=== PATIENT | female | born 1965 | race Two or more races ===

== ENCOUNTER 2016-11-14 17:30 | Emergency (ER) | payer MEDICAID ==
[~2016-11-14] VITALS: Ht 165.1 cm; Wt 102.1 kg
[~2016-11-14 17:30] MED LIST: ELAVIL; LORCET; SOMA; SYNTHROID
[2016-11-14 17:59] VITALS: BP 153/78
[2016-11-14 19:10] LABS: Basophils # (auto) 0.1 uL; Basophils % (auto) 0.5 % (0.0-2.0); Eosinophils # (auto) 0.2 uL; Eosinophils % (auto) 1.9 % (0.0-7.0); Hematocrit 45.4 % (36.0-46.0); Lymphocytes # (auto) 2.8 uL; Lymphocytes % (auto) 24.5 % (10.0-50.0); Mean Corpuscular Hemoglobin 30.1 pg (28.0-32.0); Mean Corpuscular Hgb Conc. 33.1 g/dL (32.0-36.0); Mean Corpuscular Volume 90.9 fL (80.0-100.0); Mean Platelet Volume 8.9 fL (7.4-10.4); Monocytes # (auto) 0.5 uL; Monocytes % (auto) 4.3 % (0.0-12.0); Neutrophils # (auto) 7.8 uL; Neutrophils % (auto) 68.8 % (37.0-80.0); Platelet Count (auto) 302 10^3/uL (140-450); Red Cell Distribution Width 13.9 % (11.6-16.0); White Blood Cell 11.4 10^3/uL (4.4-10.8)
[2016-11-14 19:53] LABS: Albumin 3.8 g/dL (3.4-5.0); Alkaline Phosphatase 60 U/L (45-117); Anion Gap 11 (5-15); Aspartate Aminotransferase 51 U/L (15-37); BUN/Creatinine Ratio 23.3; Bilirubin, Total 0.3 mg/dL (0.2-1.0); Blood Urea Nitrogen 17 mg/dL (7-18); Calcium 9.3 mg/dL (8.5-10.1); Carbon Dioxide 25 mmol/L (21-32); Chloride 103 mmol/L (98-107); GFR African American 107 mL/min; GFR Non-African American 89 mL/min; Glucose 98 mg/dL (74-106); Magnesium 2.1 mg/dL (1.6-2.6); Potassium 3.8 mmol/L (3.5-5.1); Sodium 139 mmol/L (136-145); Total Protein 8.2 g/dL (6.4-8.2)
[2016-11-14 19:58] LABS: Urine Bilirubin Negative (Negative); Urine Blood TRACE /uL (Negative); Urine Color Yellow (Yellow); Urine Glucose Normal (Normal); Urine Ketone Negative (Negative); Urine Mucus FEW (None Seen); Urine Nitrite POSITIVE (Negative); Urine RBC 1 /hpf (0 - 4); Urine Squamous Epithelial Cell FEW /hpf (<5); Urine Urobilinogen Normal (Negative); Urine pH 5.5 (5.0-8.0)
[2016-11-15] MEDS ORDERED: HYDROcodone-ACET 10/325MG TAB PO ONE (02:30)
[2016-11-15] MEDS ORDERED: cefTRIAXone SOD 1,000 MG VL IM ONE (02:30)
== END 2016-11-15 03:12 | disposition home or self-care (01) ==
LOC: ER 17:30 → EDBD 17:30 → ER 11-15 03:12
DX: N39.0 Urinary tract infection, site not specified (principal); F32.9 Major depressive disorder, single episode, unspecified; E78.5 Hyperlipidemia, unspecified; E07.9 Disorder of thyroid, unspecified; E11.9 Type 2 diabetes mellitus without complications; F17.210 Nicotine dependence, cigarettes, uncomplicated; Z88.8 Allergy status to other drugs, medicaments and biological substances; Z88.6 Allergy status to analgesic agent; Z90.710 Acquired absence of both cervix and uterus
CPT/HCPCS: 36415; 80053; 81001; 83735; 84484; 85025; 93005; 96372; 99285; J0696

== ENCOUNTER → 2020-03-30 | Emergency (ER) | payer MEDICAID ==
[~2020-03-30] VITALS: Ht 165.1 cm; Wt 111.1 kg
[~2020-03-30] MED LIST changes: +MORPHINE SULFATE 4 MG/ML SYR/VIAL IM ONE; +MORPHINE SULFATE 4 MG/ML SYR/VIAL IV ONE; +ONDANSETRON HCL 4 MG/2 ML VIAL IM ONE; +ONDANSETRON HCL 4 MG/2 ML VIAL IV ONE; +SODIUM CHLORIDE 0.9% 500 ML IVB ONE
[2020-03-30 17:23] LABS: Urine Bacteria NONE SEEN /hpf (None Seen); Urine Blood Negative /uL (Negative); Urine Mucus FEW (None Seen); Urine Specific Gravity 1.024 (1.001-1.035); Urine WBC 1 /hpf (0 - 5)
[2020-03-30 17:24] LABS: Basophils # (auto) 0.1 10 ^3/uL (0-0.2); Basophils % (auto) 1.2 % (0.0-2.0); Eosinophils # (auto) 0.3 10 ^3/uL (0-0.8); Eosinophils % (auto) 3.2 % (0.0-7.0); Hematocrit 42.8 % (36.0-46.0); Hemoglobin 14.2 g/dL (12.2-16.2); Lymphocytes # (auto) 2.5 10 ^3/uL (0.4-5.4); Lymphocytes % (auto) 26.2 % (10.0-50.0); Mean Corpuscular Hemoglobin 30.5 pg (28.0-32.0); Mean Corpuscular Hgb Conc. 33.3 g/dL (32.0-36.0); Mean Corpuscular Volume 91.6 fL (80.0-100.0); Monocytes # (auto) 0.7 10 ^3/uL (0-1.3); Monocytes % (auto) 7.8 % (0.0-12.0); Neutrophils # (auto) 5.8 10 ^3/uL (1.6-8.6); Neutrophils % (auto) 61.6 % (37.0-80.0); Nucleated Red Blood Cells % 0.1 %; Platelet Count (auto) 309 10^3/uL (140-450); Red Blood Cells 4.67 10^6/uL (4.0-5.20); Red Cell Distribution Width 13.7 % (11.8-14.3); White Blood Cell 9.5 10^3/uL (4.4-10.8)
[2020-03-30 17:36] LABS: Albumin 3.8 g/dL (3.4-5.0); Calcium 9.5 mg/dL (8.5-10.1); Potassium 3.6 mmol/L (3.5-5.1)
[2020-03-30 17:38] LABS: BUN/Creatinine Ratio 22.4
[2020-03-30 17:42] LABS: Bilirubin, Total 0.2 mg/dL (0.2-1.0); Total Protein 7.9 g/dL (6.4-8.2)
[2020-03-30 20:29] VITALS: BP 111/81
== END | disposition home or self-care (01) ==
LOC: ER 16:23
DX: R10.11 Right upper quadrant pain (principal); R11.2 Nausea with vomiting, unspecified; R19.7 Diarrhea, unspecified
CPT/HCPCS: 36415; 76705; 80053; 81001; 83690; 85025; 93005; 96372; 99285; J2270; J2405

== ENCOUNTER 2021-12-05 12:08 | Emergency (ER) | payer MEDICAID ==
[~2021-12-05] VITALS: Ht 165.1 cm; Wt 109.3 kg
[~2021-12-05 12:08] MED LIST changes: -MORPHINE SULFATE 4 MG/ML SYR/VIAL IM ONE; -MORPHINE SULFATE 4 MG/ML SYR/VIAL IV ONE; -ONDANSETRON HCL 4 MG/2 ML VIAL IM ONE; -ONDANSETRON HCL 4 MG/2 ML VIAL IV ONE; -SODIUM CHLORIDE 0.9% 500 ML IVB ONE
[2021-12-05 12:10] VITALS: BP 129/82
[2021-12-05 12:51] LABS: Urine Bacteria NONE SEEN /hpf (None Seen); Urine Blood Negative /uL (Negative); Urine Specific Gravity 1.006 (1.001-1.035); Urine WBC <1 /hpf (0 - 5)
[2021-12-05 14:24] LABS: Basophils # (auto) 0.1 10 ^3/uL (0-0.2); Basophils % (auto) 0.5 % (0.0-2.0); Eosinophils # (auto) 0.1 10 ^3/uL (0-0.8); Eosinophils % (auto) 1.1 % (0.0-7.0); Hematocrit 39.4 % (36.0-46.0); Lymphocytes # (auto) 2.1 10 ^3/uL (0.4-5.4); Lymphocytes % (auto) 18.2 % (10.0-50.0); Mean Corpuscular Hemoglobin 29.6 pg (28.0-32.0); Mean Corpuscular Hgb Conc. 33.1 g/dL (32.0-36.0); Mean Corpuscular Volume 89.6 fL (80.0-100.0); Monocytes # (auto) 0.6 10 ^3/uL (0-1.3); Monocytes % (auto) 5.1 % (0.0-12.0); Neutrophils # (auto) 8.6 10 ^3/uL (1.6-8.6); Neutrophils % (auto) 75.1 % (37.0-80.0); Red Cell Distribution Width 14.1 % (11.8-14.3); White Blood Cell 11.5 10^3/uL (4.4-10.8)
[2021-12-05] MEDS ORDERED: KETOROLAC TROMETH 60MG/2ML VIAL IM ONE (14:30)
[2021-12-05 14:43] LABS: Calcium 9.4 mg/dL (8.5-10.1); Potassium 4.1 mmol/L (3.5-5.1)
[2021-12-05 14:46] LABS: BUN/Creatinine Ratio 14.5; Bilirubin, Total 0.3 mg/dL (0.2-1.0); Total Protein 8.4 g/dL (6.4-8.2)
== END 2021-12-05 15:32 | disposition home or self-care (01) ==
LOC: ER 12:08
DX: S39.012A Strain of muscle, fascia and tendon of lower back, initial encounter (principal); S16.1XXA Strain of muscle, fascia and tendon at neck level, initial encounter; E78.5 Hyperlipidemia, unspecified; Z90.710 Acquired absence of both cervix and uterus; Z88.8 Allergy status to other drugs, medicaments and biological substances; X58.XXXA Exposure to other specified factors, initial encounter; Y93.89 Activity, other specified; Y92.89 Other specified places as the place of occurrence of the external cause; Y99.8 Other external cause status
CPT/HCPCS: 36415; 72125; 74176; 80053; 81001; 85025; 96372; 99284; J1885

== ENCOUNTER 2022-07-30 09:33 | Inpatient (IN) | payer MEDICAID ==
[~2022-07-30] VITALS: Ht 165.1 cm; Wt 90.0 kg
[~2022-07-30 09:33] MED LIST changes: +ATO40T PO; +CHOL100055 PO; -ELAVIL; +LEVO-140 PO; -LORCET; +MIRT-66 OR; +QUET300T14 PO; -SOMA; -SYNTHROID
[2022-07-30] MEDS ORDERED: ceFAZolin 1GM/50ML 100 ML IV ONE (10:31)
[2022-07-30] MEDS ORDERED: LIDOCAINE 1% (LOCAL ANESTH.) PF 5ml SDV ONE (11:03)
[2022-07-30] MEDS ORDERED: GLYCOPYRROLATE 0.2 MG/ML 1ML VIAL ONE (11:03)
[2022-07-30] MEDS ORDERED: PROPOFOL 10 MG/ML 20 ML IV ONE (11:03)
[2022-07-30] MEDS ORDERED: DexAMETHasone SOD PHOS 10MG/1ML VIAL INJ ONE (11:03)
[2022-07-30] MEDS ORDERED: KETOROLAC TROMETH 30 MG/ML 1ML VIAL ONE (11:03)
[2022-07-30] MEDS ORDERED: ONDANSETRON HCL 4 MG/2 ML VIAL ONE (11:03)
[2022-07-30] MEDS ORDERED: BUPIVACAINE 0.75% INJ 10ML MPV SDV IJ ONE (11:11)
[2022-07-30] MEDS ORDERED: DexAMETHasone SOD PHOS 4 MG/1ML SDV INJ ONE (11:11)
[2022-07-30] MEDS ORDERED: SODIUM CHLORIDE LOCK 20 ML ONE (11:13)
[2022-07-30] MEDS ORDERED: ROPIVACAINE 0.5% (5MG/ML) 20ML AMPULE IJ ONE (12:03)
[2022-07-30] MEDS ORDERED: TRANEXAMIC ACID 20 ML ONE (12:03)
[2022-07-30] MEDS ORDERED: VANCOMYCIN HCL 1000 MG VL ONE ×2 (12:04→13:26)
[2022-07-30] MEDS ORDERED: LIDOCAINE 2%HCL (LOCAL ANESTH.) INJ 10ml MDV ONE (12:18)
[2022-07-30] MEDS ORDERED: MIDAZOLAM HCL 2MG/2ML 2ml VIAL (1mg/ml) ONE (12:19)
[2022-07-30] MEDS ORDERED: ROCURONIUM 10MG/ML 10ML VIAL IV ONE (12:20)
[2022-07-30] MEDS ORDERED: SUGAMMADEX 200mg/2ml Vial (100MG/ML) IV ONE (12:21)
[2022-07-30] MEDS ORDERED: SODIUM CHLORIDE LOCK 10 ML ONE (12:51)
[2022-07-30] MEDS ORDERED: fentaNYL CITRATE 100 MCG/2 ML VL ONE (13:08)
[2022-07-30] MEDS: D5W/LACTATED RINGERS 1,000 ML IV SCH (14:30)
[2022-07-30] MEDS ORDERED: oxyCODONE HCL 5MG TAB PO PRN (14:30)
[2022-07-30] MEDS ORDERED: ePHEDrine SULFATE 50 MG/ML AMP IV PRN (15:15)
[2022-07-30] MEDS ORDERED: LABETALOL HCL 5 MG/ML 4ML SYRINGE IV PRN (15:15)
[2022-07-30] MEDS ORDERED: FLUMAZENIL 0.1 MG/ML INJ 10ML MDV IV PRN (15:15)
[2022-07-30] MEDS ORDERED: NALOXONE HCL 0.4 MG/ML VIAL IV PRN (15:15)
[2022-07-30] MEDS ORDERED: ONDANSETRON HCL 4 MG/2 ML VIAL IV PRN (15:15)
[2022-07-30] MEDS ORDERED: hydrALAZINE HCL 20 MG/ML VL IV PRN (15:15)
[2022-07-30] MEDS ORDERED: fentaNYL CITRATE 100 MCG/2 ML VL IV PRN (15:15)
[2022-07-30] MEDS: HYDROmorphone HCL 2 MG/ML VL/or syr IV PRN ×3 (15:32→21:37)
[2022-07-30] MEDS: KETOROLAC TROMETH 30 MG/ML 1ML VIAL IV SCH ×2 (18:31→23:37)
[2022-07-30] MEDS: ACETAMINOPHEN 325 MG TAB PO SCH ×2 (18:31→23:37)
[2022-07-30 18:37] VITALS: BP 129/70
[2022-07-30] MEDS: oxyCODONE HCL 5MG TAB PO PRN (19:40)
[2022-07-30] MEDS: QUEtiapine FUMARATE 100 MG TAB PO SCH (21:28)
[2022-07-30] MEDS: MIRTAZAPINE 30 MG TAB PO SCH (21:29)
[2022-07-30] MEDS: PREGABALIN 25 MG CAP PO SCH (21:37)
[2022-07-30 22:00] VITALS: BP 123/79
[2022-07-30] MEDS: ceFAZolin 2 GM in D5W 5% 100 ML IV SCH (22:04)
[2022-07-31] MEDS: D5W/LACTATED RINGERS 1,000 ML IV SCH ×3 (00:30→20:30)
[2022-07-31] MEDS: oxyCODONE HCL 5MG TAB PO PRN ×2 (00:53→06:34)
[2022-07-31 05:00] VITALS: BP 132/69
[2022-07-31] MEDS: ceFAZolin 2 GM in D5W 5% 100 ML IV SCH (05:57)
[2022-07-31] MEDS: KETOROLAC TROMETH 30 MG/ML 1ML VIAL IV SCH ×4 (05:57→23:27)
[2022-07-31] MEDS: ACETAMINOPHEN 325 MG TAB PO SCH ×4 (05:57→23:26)
[2022-07-31] MEDS: LEVOTHYROXINE SODIUM 112 MCG TAB PO SCH (06:35)
[2022-07-31] MEDS: LEVOTHYROXINE SODIUM 25 MCG TAB PO SCH (06:35)
[2022-07-31 08:00] VITALS: BP 106/71
[2022-07-31] MEDS: HYDROmorphone HCL 2 MG/ML VL/or syr IV PRN (09:24)
[2022-07-31] MEDS: ASPirin 81 mg TAB PO SCH ×2 (09:25→21:30)
[2022-07-31] MEDS: PREGABALIN 25 MG CAP PO SCH ×2 (09:25→21:30)
[2022-07-31] MEDS ORDERED: LEVOTHYROXINE SODIUM 137 MCG PO SCH (10:00)
[2022-07-31] MEDS ORDERED: PANTOPRAZOLE 40 MG TAB PO SCH (10:00)
[2022-07-31 10:59] VITALS: BP 155/60
[2022-07-31 11:59] VITALS: BP 102/75
[2022-07-31 16:00] VITALS: BP 100/73
[2022-07-31] MEDS: MIRTAZAPINE 30 MG TAB PO SCH (21:25)
[2022-07-31] MEDS: QUEtiapine FUMARATE 100 MG TAB PO SCH (21:25)
[2022-07-31] MEDS ORDERED: ATORVASTATIN 20 MG TAB PO SCH (22:00)
[2022-08-01] MEDS: KETOROLAC TROMETH 30 MG/ML 1ML VIAL IV SCH (05:41)
[2022-08-01] MEDS: ACETAMINOPHEN 325 MG TAB PO SCH (05:41)
[2022-08-01] MEDS: D5W/LACTATED RINGERS 1,000 ML IV SCH (05:42)
[2022-08-01] MEDS: oxyCODONE HCL 5MG TAB PO PRN (05:44)
[2022-08-01] MEDS: LEVOTHYROXINE SODIUM 112 MCG TAB PO SCH (06:22)
[2022-08-01] MEDS: LEVOTHYROXINE SODIUM 25 MCG TAB PO SCH (06:22)
== END 2022-08-01 06:12 | disposition home health service (06) | DRG 326 ==
LOC: SUR 09:33 → OVERFLOW 14:29 → CENTRAL 18:14
PROVIDERS: ADMIT Orthopaedic Surgery; ATTEND Orthopaedic Surgery
PROC: 0SRD069 Replacement of Left Knee Joint with Oxidized Zirconium on Polyethylene Synthetic Substitute, Cemented, Open Approach (ICD-10-PCS; principal; 2022-07-30 12:32)
DX: M17.0 Bilateral primary osteoarthritis of knee (principal); Z20.822 Contact with and (suspected) exposure to COVID-19
CPT/HCPCS: 73562; 86850; 86900; 86901; G0378; J0690; J1100; J1885; J2001; J2250; J2405; J2704; J3490; J7060

== ENCOUNTER 2024-11-11 20:28 | Inpatient (IN) | payer MEDICAID ==
[~2024-11-11] VITALS: Ht 165.1 cm; Wt 86.9 kg
[~2024-11-11 20:28] MED LIST changes: -ATO40T PO; +ATOR-507 PO; -MIRT-66 OR; +MIRT-94 OR
--- NOTE | 2024-11-11 21:42 | DVH ---
CHEST RADIOGRAPH Indication: ams Technique: Single frontal view of the chest was obtained COMPARISON: None FINDINGS: Lines and Tubes: [employer] [facility] who landed for Rufino toid Lungs: Mild bibasilar atelactasis/consolidation. Pleura: No effusion. No pneumothorax. Cardiomediastinal contours: Unremarkable IMPRESSION: Mild bibasilar atelactasis/consolidation.
--- NOTE | 2024-11-11 21:43 | ED.PDOC ---
Altered Mental Status HPI Comments 59-year-old female came to ER with air brake operator for altered level of consciousness. Per air brake operator, patient resides at the [facility], was noted that patient has been acting confused and disoriented today, noted foul-smelling and cloudy urine, with urinary frequency and incontinence. No fever noted. No recent history of trauma noted. Chief Complaint: Confusion Time Seen by MD: 21:43 Primary Care Provider: NEFTALY Reviewed Notes: Nurses Notes Allergies: Coded Allergies: NO KNOWN ALLERGIES (Unverified , 07/30/22) Home Meds Reported Medications Cholecalciferol (D3) 1,000 Unit Tab, 1000 UNIT PO, TAB 07/26/22 Mirtazapine (REMERON) 30 Mg Tab, 30 MG OR QPM, TAB 07/26/22 Quetiapine Fumerate (Seroquel) 300 Mg Tab, 300 MG PO HS, TAB 07/26/22 Atorvastatin Calcium (Lipitor) 40 Mg Tab, 40 MG PO DAILY, TAB 07/26/22 Levothyroxine Sodium (Synthroid) 137 Mcg Tab, 137 MCG PO DAILY, TAB 07/26/22 Information Source: Patient, Friend, Legal Guardian Mode of Arrival: Wheelchair Severity: Unable to Care for Self Timing: Hours Duration: Since onset Prehospital treatment: None Quality: Decreased Alertness, Change in Behavior, Confusion Recent: Urinary Symptoms Past Medical History PAST MEDICAL HISTORY: Depression, High Lipids, Thyroid, UTI'S Surgical History: Hysterectomy, Tonsillectomy GRADE TAMPER History: No Pertinent GRADE TAMPER History Family History Family History: No family hx of Cancer Social History Smoker: Cigarettes Alcohol: Denies ETOH Use Drugs: Denies Drug Use Lives In: Assisted Care Unable to Obtain due to: Altered Mental Status, Other (Confused, disoriented) Physical Exam General Appearance: No Apparent Distress, Normal HEENT: Normal ENT Inspection, Pharynx Normal, TMs Normal Neck: Full Range of Motion, Non-Tender, Normal, Normal Inspection Respiratory: Chest Non-Tender, Lungs Clear, No Accessory Muscle Use, No Respiratory Distress, Normal Breath Sounds Cardiovascular: No Edema, No JVD, No Murmur, No Gallop, Normal Peripheral Pulses, Regular Rate/Rhythm Breast Exam: Deferred Gastrointestinal: No Organomegaly, Non Tender, No Pulsatile Mass, Normal Bowel Sounds, Soft Genitalia: Deferred Pelvic: Deferred Rectal: Deferred Extremities: No calf tenderness, Normal capillary refill, Normal inspection, Normal range of motion, Non-tender, No pedal edema Musculoskeletal : Apperance: Normal Neurologic: Alert, traffic agent II-XII nml as Tested, No Motor Deficits, Normal Affect, Normal Mood, No Sensory Deficits Cerebellar Function: Normal Reflexes: Normal Skin: Dry, Normal Color, Warm Lymphatic: No Adenopathy Was a procedure done? Was a procedure done?: No Differential Diagnosis (ALOC) Differential Diagnosis: Encephalopathy, Sepsis, Other (Urinary tract infection) X-Ray, Labs, Meds, VS Vital Signs Date Time Temp Pulse Resp B/P (MAP) Pulse Ox O2 Delivery O2 Flow Rate FiO2 11/11/24 22:02 98.6 90 18 105/55 (72) 95 98.6 11/11/24 22:02 95 Room Air* 0 21 11/11/24 20:44 97.7 92 18 105/55 (72) 95 97.7 Lab Test 11/11/24 23:35 11/11/24 22:22 Range/Units Troponin I High Sensitivity Pending 3 L </=34 ng/L White Blood Count 8.1 4.4-10.8 10^3/uL Red Blood Count 4.53 4.0-5.20 10^6/uL Hemoglobin 13.5 12.2-16.2 g/dL Hematocrit 41.0 36.0-46.0 % Mean Corpuscular Volume 90.6 80.0-100.0 fL Mean Corpuscular Hemoglobin 29.9 28.0-32.0 pg Mean Corpuscular Hemoglobin Concent 33.0 32.0-36.0 g/dL Red Cell Distribution Width 13.7 11.8-14.3 % Platelet Count 215 140-450 10^3/uL Mean Platelet Volume 9.1 6.9-10.8 fL Neutrophils (%) (Auto) 61.5 37.0-80.0 % Lymphocytes (%) (Auto) 28.9 10.0-50.0 % Monocytes (%) (Auto) 6.9 0.0-12.0 % Eosinophils (%) (Auto) 2.1 0.0-7.0 % Basophils (%) (Auto) 0.6 0.0-2.0 % Neutrophils # (Auto) 5.0 1.6-8.6 10 ^3/uL Lymphocytes # (Auto) 2.4 0.4-5.4 10 ^3/uL Monocytes # (Auto) 0.6 0-1.3 10 ^3/uL Eosinophils # (Auto) 0.2 0-0.8 10 ^3/uL Basophils # (Auto) 0 0-0.2 10 ^3/uL Nucleated Red Blood Cells 0.1 % Sodium Level 142 136-145 mmol/L Potassium Level 3.7 3.5-5.1 mmol/L Chloride Level 109 H 98-107 mmol/L Carbon Dioxide Level 26 20-31 mmol/L Anion Gap 7 5-15 Blood Urea Nitrogen 20 9-23 mg/dL Creatinine 0.87 0.550-1.02 mg/dL Glomerular Filtration Rate Calc 76 >90 mL/min BUN/Creatinine Ratio 23.0 H 10.0-20.0 Serum Glucose 112 H 74-106 mg/dL Lactic Acid Level 1.5 0.4-2.0 mmol/L Calcium Level 9.5 8.7-10.4 mg/dL Total Bilirubin 0.2 0.2-1.0 mg/dL Aspartate Amino Transferase (AST) 9 L 13-40 U/L Alanine Aminotransferase (ALT) 15 7-40 U/L Alkaline Phosphatase 63 46-116 U/L Total Protein 7.4 5.7-8.2 g/dL Albumin 4.7 3.2-4.8 g/dL EXAM: CT HEAD WITHOUT CONTRAST INDICATION: ams TECHNIQUE: CT of the head without intravenous contrast. Radiation Dose Information: CT Dose: CTDI volume is 56.58 mGy. Dose-length product is 2228.43 mGy*cm The dose indicators for CT are the volume Computed Tomography (CT) Dose Index (CTDIvol) and the Dose Length Product (DLP), and are measured in units of mGy and mGy-cm, respectively. These indicators are not patient dose, but values generated from the CT scanner acquisition factors. The report includes radiation exposure data for exposures received during this examination. COMPARISON: None FINDINGS: There is no evidence of acute intracranial hemorrhage, extra-axial collection, mass effect, midline shift, herniation or hydrocephalus. Area of decreased attenuation in the right anterior temporal lobe may represent old infarct. There is also an area of decreased attenuation in the right frontal lobe. There is no acute hemorrhage no mass effect. May also represent an area of old infarct. The ventricles, sulci and cisterns are age appropriate. The rizo-white differentiation is intact. Patchy periventricular and subcortical white matter hypoattenuation is nonspecif ic but may be related to small vessel ischemic disease. The visualized paranasal sinuses and mastoid air cells are clear. The surrounding soft tissues and osseous structures are unremarkable. IMPRESSION: 1. 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 There are no prior studies for comparison. 2. No acute intracranial hemorrhage. 3. No mass effect or midline shift. CHEST RADIOGRAPH Indication: ams Technique: Single frontal view of the chest was obtained COMPARISON: None FINDINGS: Lines and Tubes: [employer] [facility] who landed for [place] todc Lungs: Mild bibasilar atelactasis/consolidation. Pleura: No effusion. No pneumothorax. Cardiomediastinal contours: Unremarkable IMPRESSION: Mild bibasilar atelactasis/consolidation. Time of 1ST Reevaluation: 21:39 Reevaluation 1ST: Unchanged Patient Education/Counseling: Diagnosis, Treatment Family Education/Counseling: Diagnosis, Treatment Departure 1 Departure Time of Disposition: 00:07 (Patient with worsening altered mental status. Patient's workup so far is benign. We will admit patient for further workup and expert consultation) Impression: Primary Impression: Metabolic encephalopathy Additional Impression: Generalized weakness Disposition: ADMITTED INPATIENT Admit to: Med Surg Condition: Serious Critical Care Note Critical Care Time?: No Stability Stability form required: No Heart Score Heart Score: Heart Score Response (Comments) Value History N/A 0 EKG N/A 0 Age N/A 0 Risk Factors N/A 0 Troponin N/A 0 Total 0 I personally scribed for MORELIA MCKEON MD ([email or web address]) on 11/11/24 at 21:43. Electronically submitted by Moris Booker ([email or web address]). I personally scribed for MORELIA MCKEON MD ([email or web address]) on 11/11/24 at 22:33. Electronically submitted by Moris Booker ([email or web address]). MORELIA MCKEON MD November 11, 2024 21:43
--- NOTE | 2024-11-11 21:53 | DVH ---
EXAM: CT HEAD WITHOUT CONTRAST INDICATION: ams TECHNIQUE: CT of the head without intravenous contrast. Radiation Dose Information: CT Dose: CTDI volume is 56.58 mGy. Dose-length product is 2228.43 mGy*cm The dose indicators for CT are the volume Computed Tomography (CT) Dose Index (CTDIvol) and the Dose Length Product (DLP), and are measured in units of mGy and mGy-cm, respectively. These indicators are not patient dose, but values generated from the CT scanner acquisition factors. The report includes radiation exposure data for exposures received during this examination. COMPARISON: None FINDINGS: There is no evidence of acute intracranial hemorrhage, extra-axial collection, mass effect, midline s hift, herniation or hydrocephalus. Area of decreased attenuation in the right anterior temporal lobe may represent old infarct. There is also an area of decreased attenuation in the right frontal lobe. There is no acute hemorrhage no ma ss effect. May also represent an area of old infarct. The ventricles, sulci and cisterns are age appropriate. The rizo-white differentiation is intact. Patchy periventricular and subcortical white matter hypoattenuation is nonspecific but may be related to small vessel ischemic disease. The visualized paranasal sinuses and mastoid air cells are clear. The surrounding soft tissues and osseous structures are unremarkable. IMPRESSION: 1. 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 There are no prior studies for comparison. 2. No acute intracranial hemorrhage. 3. No mass effect or midline shift.
[2024-11-11 22:02] VITALS: O2SAT 95
[2024-11-11 23:06] LABS: Basophils # (auto) 0 10 ^3/uL (0-0.2); Basophils % (auto) 0.6 % (0.0-2.0); Eosinophils # (auto) 0.2 10 ^3/uL (0-0.8); Eosinophils % (auto) 2.1 % (0.0-7.0); Hemoglobin 13.5 g/dL (12.2-16.2); Lymphocytes # (auto) 2.4 10 ^3/uL (0.4-5.4); Lymphocytes % (auto) 28.9 % (10.0-50.0); Mean Corpuscular Hemoglobin 29.9 pg (28.0-32.0); Mean Corpuscular Volume 90.6 fL (80.0-100.0); Monocytes # (auto) 0.6 10 ^3/uL (0-1.3); Monocytes % (auto) 6.9 % (0.0-12.0); Neutrophils % (auto) 61.5 % (37.0-80.0); Nucleated Red Blood Cells % 0.1 %; Platelet Count (auto) 215 10^3/uL (140-450); Red Blood Cells 4.53 10^6/uL (4.0-5.20); Red Cell Distribution Width 13.7 % (11.8-14.3); White Blood Cell 8.1 10^3/uL (4.4-10.8)
[2024-11-11 23:44] LABS: Alanine Aminotransferase 15 U/L (7-40); Albumin 4.7 g/dL (3.2-4.8); Alkaline Phosphatase 63 U/L (46-116); Anion Gap 7 (5-15); Blood Urea Nitrogen 20 mg/dL (9-23); Calcium 9.5 mg/dL (8.7-10.4); Carbon Dioxide 26 mmol/L (20-31); Potassium 3.7 mmol/L (3.5-5.1); Sodium 142 mmol/L (136-145); Total Protein 7.4 g/dL (5.7-8.2)
[2024-11-11 23:49] LABS: Aspartate Aminotransferase 9 U/L (13-40); Bilirubin, Total 0.2 mg/dL (0.2-1.0); Chloride 109 mmol/L (98-107); Glucose 112 mg/dL (74-106)
[2024-11-12] MEDS ORDERED: MORPHINE SULFATE INJ 2 MG/ml SYRG IV PRN (01:45)
[2024-11-12] MEDS ORDERED: NITROGLYCERIN 0.4 MG SL TAB SL PRN (01:45)
[2024-11-12] MEDS ORDERED: HYDROcodone-ACET 5/325MG TAB PO PRN (01:45)
[2024-11-12] MEDS ORDERED: DOCUSATE SOD 100 MG CAP PO PRN (01:45)
[2024-11-12] MEDS ORDERED: ONDANSETRON HCL 4 MG/2 ML VIAL IV PRN (01:45)
--- NOTE | 2024-11-12 01:50 | DVHHP2 ---
History of Present Illness Reason for Visit: Metabolic encephalopathy History of Present Illness Patient is a 59-year-old female with past medical history of depression, thyroid disease, UTIs, and hyperlipidemia who presented to [facility] ED for evaluation of confusion state. As reported by caregiver, patient cognitive ability has been deteriorating, acting confused, disoriented, noted foul- smelling urine, urinary frequency, incontinence, getting worse that prompted this visit. Patient was seen and evaluated in the ED, laboratory data shows WBC 8.1, platelets 215, BUN 142, potassium 3.7, BUN 20, creatinine 0.87, glucose 112, troponin 3, urinalysis positive for urinary tract infection. Patient was started on IV antibiotic regimen Rocephin, please see medication orders section in the computer. On my assessment, patient remains conscious, no diaphoresis, no shortness a breath, no nausea, no vomiting, no fever, no chills. Patient was admitted for further evaluation and medical management. Past Medical History Depression, High Lipids, Thyroid, UTI'S Past Surgical History Hysterectomy, Tonsillectomy Family History Reviewed, noncontributory to the management of this case. Past Social History Patient lives at assisted living facility, smokes cigarettes, denies alcohol or illicit drugs abuse. Review of Systems Constitutional: Yes: Weakness; No: Fever, Chills, Sweats, Malaise, Other Eyes: No: Pain, Vision change, Conjunctivae inflammation, Eyelid inflammation, Other, Redness ENT: No: Ear pain, Ear discharge, Nose pain, Nose discharge, Nose congestion, Mouth pain, Mouth swelling, Throat pain, Throat swelling, Other Respiratory: No: Cough, Dry, Shortness of breath, SOB with excertion, Wheezing, Hemoptysis, Pleuritic Pain, Sputum, Wheezing, Other Cardiovascular: No: Chest Pain, Palpitations, Orthopnea, Paroxysmal Noc. Dyspnea, Edema, Lt Headedness, Other Gastrointestinal: No: Nausea, Vomiting, Abdominal Pain, Diarrhea, Constipation, Melena, Hematochezia, Other Genitourinary: No Dysuria, No Frequency, No Incontinence, No Hematuria, No Retention, No Other Musculoskeletal: No: other, neck pain, shoulder pain, arm pain, back pain, hand pain, leg pain, foot pain Skin: No: Rash, Lesions, Jaundice, Bruising, Other Neurological: Confusion; No: Weakness, Numbness, Incoordination, Change in speech, Seizures, Other Allergies: Coded Allergies: NO KNOWN ALLERGIES (Unverified , 07/30/22) Exam Vital Signs Vital Signs Date Time Temp Pulse Resp B/P (MAP) Pulse Ox O2 Delivery O2 Flow Rate FiO2 11/11/24 22:02 98.6 90 18 105/55 (72) 95 98.6 11/11/24 22:02 Room Air* 0 21 General Appearance: Alert, Oriented X3, Cooperative, No acute distress HEENT: Atraumatic, PERRLA, EOMI, Mucous membr. moist/pink Respiratory: Clear to auscultation, Normal air movement Cardiovascular: Regular rate, Normal S1, Normal S2, No murmurs Abdominal: Normal bowel sounds, Soft, No tenderness, No hepatospenomegaly, No masses Extremities: No clubbing, No cyanosis, No edema, Normal pulses, No tenderness/swelling Skin: No rashes, No breakdown, No significant lesion Neuro: Normal tone, Sensation intact, Cranial nerves 3-12 NL, Reflexes 2+, Other (Generalized weakness) Psych/Mental Status: Mood NL, Other (Altered mental status) Labs/Xrays Labs Test 11/11/24 23:59 11/11/24 23:35 11/11/24 22:22 Range/Units Troponin I High Sensitivity 3 L </=34 ng/L White Blood Count 8.1 4.4-10.8 10^3/uL Red Blood Count 4.53 4.0-5.20 10^6/uL Hemoglobin 13.5 12.2-16.2 g/dL Hematocrit 41.0 36.0-46.0 % Mean Corpuscular Volume 90.6 80.0-100.0 fL Mean Corpuscular Hemoglobin 29.9 28.0-32.0 pg Mean Corpuscular Hemoglobin Concent 33.0 32.0-36.0 g/dL Red Cell Distribution Width 13.7 11.8-14.3 % Platelet Count 215 140-450 10^3/uL Mean Platelet Volume 9.1 6.9-10.8 fL Neutrophils (%) (Auto) 61.5 37.0-80.0 % Lymphocytes (%) (Auto) 28.9 10.0-50.0 % Monocytes (%) (Auto) 6.9 0.0-12.0 % Eosinophils (%) (Auto) 2.1 0.0-7.0 % Basophils (%) (Auto) 0.6 0.0-2.0 % Neutrophils # (Auto) 5.0 1.6-8.6 10 ^3/uL Lymphocytes # (Auto) 2.4 0.4-5.4 10 ^3/uL Monocytes # (Auto) 0.6 0-1.3 10 ^3/uL Eosinophils # (Auto) 0.2 0-0.8 10 ^3/uL Basophils # (Auto) 0 0-0.2 10 ^3/uL Nucleated Red Blood Cells 0.1 % Sodium Level 142 136-145 mmol/L Potassium Level 3.7 3.5-5.1 mmol/L Chloride Level 109 H 98-107 mmol/L Carbon Dioxide Level 26 20-31 mmol/L Anion Gap 7 5-15 Blood Urea Nitrogen 20 9-23 mg/dL Creatinine 0.87 0.550-1.02 mg/dL Glomerular Filtration Rate Calc 76 >90 mL/min BUN/Creatinine Ratio 23.0 H 10.0-20.0 Serum Glucose 112 H 74-106 mg/dL Lactic Acid Level 1.5 0.4-2.0 mmol/L Calcium Level 9.5 8.7-10.4 mg/dL Total Bilirubin 0.2 0.2-1.0 mg/dL Aspartate Amino Transferase (AST) 9 L 13-40 U/L Alanine Aminotransferase (ALT) 15 7-40 U/L Alkaline Phosphatase 63 46-116 U/L Total Protein 7.4 5.7-8.2 g/dL Albumin 4.7 3.2-4.8 g/dL PATIENT: SHARON PAINTER ACCT: [id number] UNIT: [id number] : 1965 LOC: ER ROOM / BED: / AGE / SEX: 59 / F ADM STATUS: REG ER SERVICE 12 ORDERING PHYSICIAN: MORELIA MCKEON MD PROCEDURE(s): CXRP - CHEST PORTABLE REASON: ams ORDER NUMBER(s): [id number], ACCESSION NUMBER(s): [id number] CHEST RADIOGRAPH Indication: ams Technique: Single frontal view of the chest was obtained COMPARISON: None FINDINGS: Lines and Tubes: [employer] [facility] who landed for [employer] toid Lungs: Mild bibasilar atelactasis/consolidation. Pleura: No effusion. No pneumothorax. Cardiomediastinal contours: Unremarkable IMPRESSION: Mild bibasilar atelactasis/consolidation. ORDERING PHYSICIAN: MORELIA MCKEON MD PROCEDURE(s): HWOCT - HEAD WITHOUT CONTRAST REASON: [facility] ORDER NUMBER(s): [id number], ACCESSION NUMBER(s): [id number] EXAM: CT HEAD WITHOUT CONTRAST INDICATION: ams TECHNIQUE: CT of the head without intravenous contrast. Radiation Dose Information: CT Dose: CTDI volume is 56.58 mGy. Dose-length product is 2228.43 mGy*cm The dose indicators for CT are the volume Computed Tomography (CT) Dose Index (CTDIvol) and the Dose Length Product (DLP), and are measured in units of mGy and mGy-cm, respectively. These indicators are not patient dose, but values generated from the CT scanner acquisition factors. The report includes radiation exposure data for exposures received during this examination. COMPARISON: None FINDINGS: There is no evidence of acute intracranial hemorrhage, extra-axial collection, mass effect, midline shift, herniation or hydrocephalus. Area of decreased attenuation in the right anterior temporal lobe may represent old infarct. There is also an area of decreased attenuation in the right frontal lobe. There is no acute hemorrhage no mass effect. May also represent an area of old infarct. The ventricles, sulci and cisterns are age appropriate. The rizo-white differentiation is intact. Patchy periventricular and subcortical white matter hypoattenuation is nonspecific but may be related to small vessel ischemic disease. The visualized paranasal sinuses and mastoid air cells are clear. The surrounding soft tissues and osseous structures are unremarkable. IMPRESSION: 1. 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 There are no prior studies for comparison. 2. No acute intracranial hemorrhage. 3. No mass effect or midline shift. Assessment/Plan Assessment/Plan Metabolic encephalopathy Urinary tract infection Confusion state Generalized weakness Plan 1. Admit to med surge unit 2. Breathing treatment 3. Pain control management 4. IV antibiotic management 5. Management of fluids and electrolytes 6. Consultation for hospitalist 7. Diagnostic test head CT 8. DVT prophylaxis-on SCDs 9. Repeat labs CBC, CMP in a.m. 10. Home medication reviewed and reconciled 11. Continue with current medical management 12. Treatment plan discussed with patient and RN. Patient verbalized understanding. Plan discussed with: Patient, Other (RN) Problem List: (1) Metabolic encephalopathy (2) Urinary tract infection (3) Confusion state (4) Generalized weakness Date of Service: November 12, 2024 Billing Provider: SAMUEL SAMUELS DNP Common Visit Codes: [id number] INP/OBS CARE (HIGH) SAMUEL SAMUELS DNP November 12, 2024 01:50
[2024-11-12 02:40] LABS: Urine Bacteria MANY /hpf (None Seen); Urine Blood Negative /uL (Negative); Urine Clarity Ex.Turbid (Clear); Urine Color Light-Brown (Yellow); Urine Protein, UAD TRACE (Negative); Urine Specific Gravity 1.027 (1.001-1.035); Urine Squamous Epithelial Cell FEW /hpf (<5); Urine Urobilinogen 4 mg/dL (Negative); Urine WBC 8 /HPF (0-5)
[2024-11-12] MEDS: LEVOTHYROXINE SODIUM 112 MCG TAB PO SCH (06:30)
[2024-11-12] MEDS: SODIUM CHLOR 0.9% PF (SALINE LOCK) 10ML VIAL/SYR IV SCH (06:30)
[2024-11-12 09:18] VITALS: PULSE 77; RESP 18; O2SAT 96
[2024-11-12] MEDS: HALOPERIDOL LACTATE 5 MG/ML INJ VIAL IM ONE (10:52)
[2024-11-12] MEDS ORDERED: ALBUTEROL SULF 2.5 MG/0.5ML(0.5%) NEB SOLN NEB PRN (11:30)
--- NOTE | 2024-11-12 11:38 | DVHPNRES ---
Progress Note Date Seen: November 12, 2024 Resident Creating Document: ROSA DELCID RESIDENT Medical Necessity Reason Pt with a Central, PICC or Fol: No Subjective Review of Systems This is a 59-year-old female with past medical history of depression, hypothyroidism, hyperlipidemia, schizophrenia presented to the ED the EMS for an evaluation of altered mental status; caregiver claimed the patient's cognitive ability has been deteriorating, acting confused, disoriented, noted foul-smelling urine, urinary frequency, incontinence getting worse that prompted this visit. Patient was seen and examined on the bedside. she is alert oriented x1 and agitated. Review of system could not be assessed as patient is not fully alert and oriented. Objective vital signs Vital Sign Date Time Temp Pulse Resp B/P (MAP) Pulse Ox O2 Delivery O2 Flow Rate FiO2 11/12/24 09:18 77 18 96 Room Air* 0 21 11/12/24 09:17 98.2 123/73 (90) 98.2 medications Current Medications Medications Dose Ordered Sig/Candido Route Start Time Stop Time Status Last Admin Dose Admin Atorvastatin Calcium 40 mg HS PO 11/12/24 22:00 Cancel Mirtazapine 30 mg HS PO 11/12/24 22:00 Cancel Sodium Chloride 10 ml Q8HR IV 11/12/24 06:00 11/12/24 06:30 10 ML Acetaminophen/ Hydrocodone Bitart 1 tab Q4HP PRN PO 11/12/24 01:45 Ondansetron HCl 4 mg Q4HP PRN IV 11/12/24 01:45 Docusate Sodium 100 mg BIDPRN PRN PO 11/12/24 01:45 Acetaminophen 650 mg Q6HP PRN PO 11/12/24 01:45 Nitroglycerin 0.4 mg Q5MINP PRN SL 11/12/24 01:45 Morphine Sulfate 2 mg Q30M PRN IV 11/12/24 01:45 Ceftriaxone Sodium 50 ml @ 100 mls/hr DAILY@09 IV 11/13/24 09:00 Cholecalciferol 1,000 unit DAILY PO 11/13/24 10:00 Mirtazapine 30 mg QPM PO 11/12/24 18:00 Patient Own Medication 137 mcg DAILY PO 11/13/24 10:00 UNV Patient Own Medication 300 mg HS PO 11/12/24 22:00 UNV Atorvastatin Calcium 40 mg HS PO 11/12/24 22:00 Levothyroxine Sodium 112 mcg QAM PO 11/13/24 07:00 Levothyroxine Sodium 25 mcg QAM PO 11/13/24 07:00 Quetiapine Fumarate 300 mg HS PO 11/12/24 22:00 Azithromycin 250 ml @ 125 mls/hr DAILY IV 11/13/24 10:00 Albuterol 2.5 mg Q6HPRN PRN NEB 11/12/24 11:30 Ipratropium [place] 0.5 mg Q6HR NEB 11/12/24 12:00 Examination Physical examination: General Appearance: Alert, Oriented X1, agitated and mild distress HEENT: Atraumatic, PERRLA, EOMI, Mucous membrane moist/pink Respiratory: Clear to auscultation, Normal air movement Cardiovascular: Regular rate, Normal S1, Normal S2, No murmurs, no chest wall tenderness Abdominal: Normal bowel sounds, Soft, No tenderness, No hepatosplenomegaly, No masses Extremities: Bilateral nonpitting edema, No clubbing, No cyanosis, Normal pulses, No tenderness/swelling Skin: No rashes, No breakdown, No significant lesion Neuro: Normal speech, Strength at 5/5 X4 ext, Normal tone, Sensation intact, grossly intact cranial nerves Psych/Mental Status: Could not be assessed. 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 - CXR showed mild bibasilar atelectasis/ consolidation - med neb with albuterol and ipratropium q.6 hours - IV ceftriaxone 1 g daily and IV azithromycin 500 mg daily - Pending UDS, TSH, B12, and ammonia. - Haloperidol 2.5 mg IM once # Acute complicated cystitis - U/A was consistent with UTI - Ordered urine bacterial culture - IV ceftriaxone 1 g daily # Chronic hypothyroidism - Levothyroxine 137 mcg daily at q.a.m. # History of the depression - mirtazapine 30 mg p.o. at q.p.m. # Questionable history of schizophrenia - quetiapine 300 mg at HS # DVT prophylaxis - Lovenox 40 mg sc daily Goal of care could not be discussed as patient is A&O x1 Plan discussed with Dr. Shaffer Plan discussed with: Patient, Other (Nurse) My Orders My Orders Orders - ROSA DELCID RESIDENT Procedure Category Date Status Time Ammonia LAB 11/12/24 Logged 10:11 Cholecalciferol PHA 11/13/24 In Process Tablet (Vitamin D3 10:00 Mirtazapine Tablet PHA 11/12/24 In Process (Remeron Tablet) 18:00 Abg W/ Co-Ox RT 11/12/24 Logged 11:00 Atorvastatin (Lipitor) PHA 11/12/24 In Process 22:00 Levothyroxine Tablet PHA 11/13/24 In Process (Synthroid Tablet) 07:00 Levothyroxine Tablet PHA 11/13/24 In Process (Synthroid Tablet) 07:00 Quetiapine Fumarate PHA 11/12/24 In Process Tablet (Seroquel Tab 22:00 Drug Screen LAB 11/12/24 Logged 11:07 Vitamin B12 LAB 11/12/24 Logged 11:07 Vitamin D, 25-Hydroxy LAB 11/12/24 Logged 11:07 Azithromycin 500mg/ PHA 11/13/24 In Process 250ml (Zithromax 50 10:00 Azithromycin 500mg/ PHA 11/12/24 In Process 250ml (Zithromax 50 11:15 Covid19 Antigen Paula LAB 11/12/24 Logged Rapid Influenza A&B LAB 11/12/24 Logged 11:13 Mrsa Screen LUCY 11/12/24 Uncollected 11:13 Albuterol Medneb PHA 11/12/24 In Process (Ventolin Medneb) 11:30 Ipratropium Medneb PHA 11/12/24 In Process (Atrovent Medneb) 12:00 Addendum Addendum Addendum I was physically present for the turner portions of the service provided to patient by THE RESIDENT. I have reviewed the documentation, discussed the case with resident and agree with the resident's documentation except as noted. Also the patient's clinical case was discussed with the patient's nurse. This medical document was created using an electronic medical record system with computerized dictation system. Although this document has been carefully reviewed, there might still be some phonetic and typographical errors. These areas are purely typographical due to imperfections of the software programs, and do not reflect any compromise in the patient's medical care. Late signature. Date of Service: November 12, 2024 Billing Provider: YANCY SHAFFER MD Common Visit Codes: [id number] INP/OBS CARE(HIGH) ROSA DELCID RESIDENT November 12, 2024 11:38 YANCY SHAFFER MD November 13, 2024 10:35
[2024-11-12] MEDS: cefTRIAXone 1GM/50ML D5W 50 ML IV ONE (11:41)
[2024-11-12] MEDS ORDERED: IPRATROPIUM BROM 0.5 MG/2.5ML INH SOL NEB SCH (12:00)
[2024-11-12] MEDS: AZITHROMYCIN 500MG/ 250ML 250 ML IV ONE (12:05)
[2024-11-12 12:37] VITALS: BP 123/73; PULSE 77; RESP 18; O2SAT 96
[2024-11-12] MEDS ORDERED: IPRATROPIUM BROM 0.5 MG/2.5ML INH SOL NEB PRN (13:00)
[2024-11-12 14:38] LABS: Basophils # (auto) 0.1 10 ^3/uL (0-0.2); Basophils % (auto) 0.9 % (0.0-2.0); Eosinophils # (auto) 0.2 10 ^3/uL (0-0.8); Eosinophils % (auto) 2.5 % (0.0-7.0); Hematocrit 40.4 % (36.0-46.0); Hemoglobin 13.6 g/dL (12.2-16.2); Lymphocytes # (auto) 2.2 10 ^3/uL (0.4-5.4); Lymphocytes % (auto) 34.1 % (10.0-50.0); Mean Corpuscular Hemoglobin 30.1 pg (28.0-32.0); Mean Corpuscular Hgb Conc. 33.6 g/dL (32.0-36.0); Mean Corpuscular Volume 89.6 fL (80.0-100.0); Monocytes # (auto) 0.6 10 ^3/uL (0-1.3); Neutrophils # (auto) 3.5 10 ^3/uL (1.6-8.6); Neutrophils % (auto) 53.5 % (37.0-80.0); Nucleated Red Blood Cells % 0.1 %; Platelet Count (auto) 175 10^3/uL (140-450); Red Blood Cells 4.51 10^6/uL (4.0-5.20); Red Cell Distribution Width 13.6 % (11.8-14.3); White Blood Cell 6.6 10^3/uL (4.4-10.8)
[2024-11-12 14:45] LABS: Potassium 3.9 mmol/L (3.5-5.1); Sodium 143 mmol/L (136-145)
[2024-11-12 14:46] LABS: Anion Gap 8 (5-15); Calcium 10.2 mg/dL (8.7-10.4); Carbon Dioxide 27 mmol/L (20-31)
[2024-11-12 14:47] LABS: Chloride 108 mmol/L (98-107)
[2024-11-12 14:51] LABS: BUN/Creatinine Ratio 30.9 (10.0-20.0); Blood Urea Nitrogen 17 mg/dL (9-23); Glucose 89 mg/dL (74-106)
[2024-11-12 16:08] LABS: COVID19 ANTIGEN SOFIA FIA NEGATIVE (NEGATIVE)
[2024-11-12 16:09] LABS: Rapid Influenza A Negative (Negative); Rapid Influenza B Negative (Negative)
[2024-11-12 18:47] VITALS: O2SAT 96
[2024-11-12 19:00] VITALS: BP 107/58; PULSE 54; RESP 18; TEMP 98.6; TEMP 99.6; O2SAT 96
[2024-11-12] MEDS: MIRTAZAPINE 30 MG TAB PO SCH (19:31)
[2024-11-12 20:00] VITALS: PULSE 87
[2024-11-12 21:00] VITALS: BP 107/58; PULSE 54; RESP 18; TEMP 98.6; O2SAT 96
[2024-11-12] MEDS ORDERED: MIRTAZAPINE 30 MG TAB PO SCH (22:00)
[2024-11-12] MEDS ORDERED: QUETIAPINE FUMERATE 300 MG PO SCH (22:00)
[2024-11-12] MEDS ORDERED: ATORVASTATIN 20 MG TAB PO SCH (22:00)
[2024-11-12] MEDS: ATORVASTATIN 20 MG TAB PO SCH (22:41)
[2024-11-12] MEDS: QUEtiapine FUMARATE 100 MG TAB PO SCH (22:42)
[2024-11-13] VITALS (9 sets, daily range): BP systolic 96–103; BP diastolic 53–73; PULSE 59–81; RESP 16–19; TEMP 96.7–98; O2SAT 92–96
[2024-11-13] MEDS: LEVOTHYROXINE SODIUM 25 MCG TAB PO SCH (06:28)
[2024-11-13] MEDS: LEVOTHYROXINE SODIUM 112 MCG TAB PO SCH (06:28)
[2024-11-13] MEDS: cefTRIAXone 1GM/50ML D5W 50 ML IV SCH (09:39)
[2024-11-13] MEDS: CHOLECALCIFEROL (VITD3) 1,000UNIT=25mCg TAB PO SCH (09:39)
[2024-11-13] MEDS: ACETAMINOPHEN 325 MG TAB PO PRN (09:39)
[2024-11-13] MEDS ORDERED: PATIENTS OWN MEDICATION (Atorvastatin Calcium (Lipitor) 40 MG) PO SCH (10:00)
[2024-11-13] MEDS ORDERED: LEVOTHYROXINE SODIUM 137 MCG PO SCH (10:00)
[2024-11-13] MEDS: AZITHROMYCIN 500MG/ 250ML 250 ML IV SCH (10:54)
--- NOTE | 2024-11-13 13:19 | DVHPNRES ---
Progress Note Date Seen: November 13, 2024 Resident Creating Document: ROSA DELCID RESIDENT Medical Necessity Reason Pt with a Central, PICC or Fol: No Subjective Review of Systems Patient was seen and examined on the bedside. she is alert oriented x1 and still confused and agitated. Objective vital signs Vital Sign Date Time Temp Pulse Resp B/P (MAP) Pulse Ox O2 Delivery O2 Flow Rate FiO2 11/13/24 12:48 97.8 59 16 98/58 (71) 96 97.8 11/13/24 10:00 Room Air 0.0 11/13/24 10:00 21 Total Intake and Output 11/12/24 11/12/24 11/13/24 15:00 23:00 07:00 Intake Total 225 ml 880 ml Balance 225 ml 880 ml medications Current Medications Medications Dose Ordered Sig/Candido Route Start Time Stop Time Status Last Admin Dose Admin Atorvastatin Calcium 40 mg HS PO 11/12/24 22:00 Cancel Mirtazapine 30 mg HS PO 11/12/24 22:00 Cancel Sodium Chloride 10 ml Q8HR IV 11/12/24 06:00 11/13/24 06:06 10 ML Acetaminophen/ Hydrocodone Bitart 1 tab Q4HP PRN PO 11/12/24 01:45 Ondansetron HCl 4 mg Q4HP PRN IV 11/12/24 01:45 Docusate Sodium 100 mg BIDPRN PRN PO 11/12/24 01:45 Acetaminophen 650 mg Q6HP PRN PO 11/12/24 01:45 11/13/24 09:39 650 MG Nitroglycerin 0.4 mg Q5MINP PRN SL 11/12/24 01:45 Morphine Sulfate 2 mg Q30M PRN IV 11/12/24 01:45 Ceftriaxone Sodium 50 ml @ 100 mls/hr DAILY@09 IV 11/13/24 09:00 11/13/24 09:39 100 MLS/HR Cholecalciferol 1,000 unit DAILY PO 11/13/24 10:00 11/13/24 09:39 1,000 UNIT Mirtazapine 30 mg QPM PO 11/12/24 18:00 11/12/24 19:31 30 MG Patient Own Medication 137 mcg DAILY PO 11/13/24 10:00 UNV Patient Own Medication 300 mg HS PO 11/12/24 22:00 UNV Atorvastatin Calcium 40 mg HS PO 11/12/24 22:00 11/12/24 22:41 40 MG Levothyroxine Sodium 112 mcg QAM PO 11/13/24 07:00 11/13/24 06:28 112 MCG Levothyroxine Sodium 25 mcg QAM PO 11/13/24 07:00 11/13/24 06:28 25 MCG Quetiapine Fumarate 300 mg HS PO 11/12/24 22:00 11/12/24 22:42 300 MG Azithromycin 250 ml @ 125 mls/hr DAILY IV 11/13/24 10:00 11/13/24 10:54 125 MLS/HR Albuterol 2.5 mg Q6HPRN PRN NEB 11/12/24 11:30 Ipratropium [place] 0.5 mg Q6HR PRN NEB 11/12/24 13:00 Examination Physical examination: General Appearance: Alert, Oriented X1, agitated and mild distress HEENT: Atraumatic, PERRLA, EOMI, Mucous membrane moist/pink Respiratory: Clear to auscultation, Normal air movement Cardiovascular: Regular rate, Normal S1, Normal S2, No murmurs, no chest wall tenderness Abdominal: Normal bowel sounds, Soft, No tenderness, No hepatosplenomegaly, No masses Extremities: Bilateral nonpitting edema, No clubbing, No cyanosis, Normal pulses, No tenderness/swelling Skin: No rashes, No breakdown, No significant lesion Neuro: Normal speech, Strength at 5/5 X4 ext, Normal tone, Sensation intact, grossly intact cranial nerves Psych/Mental Status: Could not be assessed laboratory and microbiology Laboratory Tests 11/12/24 14:18 Test 11/12/24 14:18 Range/Units Serum Glucose 89 74-106 mg/dL Microbiology Date/Time Source Procedure Growth Status 11/11/24 23:59 Voided Urine Urine Culture - Preliminary Resulted 11/11/24 22:22 Blood Blood Culture - Preliminary NO GROWTH AFTER 24 HOURS OF INCUBATION. 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 - CXR showed mild bibasilar atelectasis/ consolidation - med neb with albuterol and ipratropium q.6 hours - IV ceftriaxone 1 g daily and IV azithromycin 500 mg daily - TSH >14 and B12 , ammonia are normal and pending UDS - Haloperidol 2.5 mg IM once # Acute complicated cystitis - U/A was consistent with UTI - Ordered urine bacterial culture - IV ceftriaxone 1 g daily # Chronic hypothyroidism with elevated TSH - Increased Levothyroxine to 150 mcg daily at q.a.m. # History of the depression - Mirtazapine 30 mg p.o. at q.p.m. # Questionable history of schizophrenia - Quetiapine 300 mg at HS # DVT prophylaxis - Lovenox 40 mg sc daily Goal of care could not be discussed as patient is A&O x1 Plan discussed with Dr. Shaffer Plan discussed with: Patient, Other (Nurse) My Orders My Orders Orders - ROSA DELCID Procedure Category Date Status Time Mrsa Screen LUCY 11/12/24 In Process 22:45 * Title Manager CONS 11/12/24 Transmitted Consult 23:48 Addendum Addendum Addendum I was physically present for the turner portions of the service provided to patient by THE RESIDENT. I have reviewed the documentation, discussed the case with resident and agree with the resident's documentation except as noted. Also the patient's clinical case was discussed with the patient's nurse. This medical document was created using an electronic medical record system with computerized dictation system. Although this document has been carefully reviewed, there might still be some phonetic and typographical errors. These areas are purely typographical due to imperfections of the software programs, and do not reflect any compromise in the patient's medical care. Late signature. Date of Service: November 13, 2024 Billing Provider: YANCY SHAFFER MD Common Visit Codes: [id number] INP/OBS CARE(HIGH) ROSA DELCID RESIDENT November 13, 2024 13:19 YANCY SHAFFER MD November 14, 2024 12:04
[2024-11-13] MEDS ORDERED: LORazepam 2MG/ML-1ML VIAL IV PRN (15:00)
[2024-11-13] MEDS: MUPIROCIN 2% OINT 15gm or 22gm FOR MRSA NARES EACHNOSTRI SCH (22:00)
[2024-11-14] VITALS (10 sets, daily range): BP systolic 115–127; BP diastolic 45–71; PULSE 70–85; RESP 18–20; TEMP 98–98.4; O2SAT 93–96
[2024-11-14] MEDS: LEVOTHYROXINE SODIUM 50 MCG TAB PO SCH (06:25)
--- NOTE | 2024-11-14 07:58 | DVHPN2 ---
Subjective Still confused Reviewed: Care Plan, H&P, Labs, Medications, Previous Orders, Radiology Changes from previous H/P or p: No Changes Objective Vitals Vital Signs Date Time Temp Pulse Resp B/P (MAP) Pulse Ox O2 Delivery O2 Flow Rate FiO2 11/14/24 05:00 98.1 70 18 123/65 (84) 96 98.1 11/13/24 20:00 Room Air* 0 21 Intake/Output Intake and Output 11/14/24 07:00 Intake Total 3495 ml Balance 3495 ml Intake Oral 3195 ml IV Total 300 ml # Voids 10 # Bowel Movements 1 General Appearance: Other (Confused) HEENT: Atraumatic Lungs: Clear to auscultation, Normal air movement Cardiovascular: Regular rate, Normal S1, Normal S2, No murmurs Abdomen: Normal bowel sounds, Soft, No tenderness, No hepatospenomegaly Neuro: Normal speech, Cranial nerves 3-12 NL, Other (Confused) Psych/Mental Status: Other (Confused) Medications Current Medications Medications Dose Ordered Sig/Candido Route Start Time Stop Time Status Last Admin Dose Admin Atorvastatin Calcium 40 mg HS PO 11/12/24 22:00 Cancel Mirtazapine 30 mg HS PO 11/12/24 22:00 Cancel Sodium Chloride 10 ml Q8HR IV 11/12/24 06:00 11/14/24 06:25 10 ML Acetaminophen/ Hydrocodone Bitart 1 tab Q4HP PRN PO 11/12/24 01:45 Ondansetron HCl 4 mg Q4HP PRN IV 11/12/24 01:45 Docusate Sodium 100 mg BIDPRN PRN PO 11/12/24 01:45 Acetaminophen 650 mg Q6HP PRN PO 11/12/24 01:45 11/13/24 18:26 650 MG Nitroglycerin 0.4 mg Q5MINP PRN SL 11/12/24 01:45 Morphine Sulfate 2 mg Q30M PRN IV 11/12/24 01:45 Ceftriaxone Sodium 50 ml @ 100 mls/hr DAILY@09 IV 11/13/24 09:00 11/13/24 09:39 100 MLS/HR Cholecalciferol 1,000 unit DAILY PO 11/13/24 10:00 11/13/24 09:39 1,000 UNIT Mirtazapine 30 mg QPM PO 11/12/24 18:00 11/13/24 18:26 30 MG Patient Own Medication 137 mcg DAILY PO 11/13/24 10:00 UNV Patient Own Medication 300 mg HS PO 11/12/24 22:00 UNV Atorvastatin Calcium 40 mg HS PO 11/12/24 22:00 11/13/24 23:07 40 MG Quetiapine Fumarate 300 mg HS PO 11/12/24 22:00 11/13/24 23:06 300 MG Azithromycin 250 ml @ 125 mls/hr DAILY IV 11/13/24 10:00 11/13/24 10:54 125 MLS/HR Albuterol 2.5 mg Q6HPRN PRN NEB 11/12/24 11:30 Ipratropium [place] 0.5 mg Q6HR PRN NEB 11/12/24 13:00 Levothyroxine Sodium 150 mcg QAM@0600 PO 11/14/24 06:00 11/14/24 06:25 150 MCG Mupirocin 1 applic BID EACHNOSTRI 11/13/24 22:00 11/18/24 21:59 Lorazepam 0.5 mg Q12HP PRN IV 11/13/24 15:00 Laboratory Results Laboratory Tests 11/12/24 14:18 Urinalysis Test 11/11/24 23:59 Urine Color Light-brown (Yellow) Urine Clarity Ex.turbid (Clear) Urine pH 6.0 (5.0-9.0) Urine Specific [place] 1.027 (1.001-1.035) Urine Protein Trace (Negative) H Urine Ketones Trace (Negative) Urine Blood Negative /uL (Negative) Urine Nitrite Negative (Negative) Urine Bilirubin Negative (Negative) Urine Urobilinogen 4 mg/dL (Negative) H Urine Leukocyte Esterase 2+ /uL (Negative) Urine RBC 2 /hpf (0 - 4) Urine Microscopic WBC 8 /HPF (0-5) H Urine Squamous Epithelial Cells Few /hpf (<5) Urine Bacteria Many /hpf (None Seen) H Urine Glucose Normal mg/dL (Normal) Microbiology Microbiology Date/Time Source Procedure Growth Status 11/12/24 22:40 Nose MRSA Screen - Final Methicillin Resistant S.aureus Complete 11/11/24 23:59 Voided Urine Urine Culture - Preliminary Resulted 11/11/24 22:22 Blood Blood Culture - Preliminary NO GROWTH AFTER 48 HOURS OF INCUBATION. Resulted Labs and/or images reviewed: Labs reviewed by me, Image(s) reviewed by me Assessment/Plan Assessment/Plan Covering: Acute metabolic/toxic encephalopathy in the setting of uncontrolled hypothyroidism and schizophrenia; likely acute delirium; still confused; episodic agitation Suspected sepsis due to Klebsiella pneumoniae complicated UTI and suspected Gram-positive versus Gram-negative pneumonia Klebsiella pneumoniae complicated UTI Suspected Gram-negative versus Gram-positive pneumonia Uncontrolled hypothyroidism with elevated TSH Schizophrenia with depression Nasal MRSA; isolated; to eradicate Obesity One-to-one sitter for episodes of agitation; to continue reorienting the patient Reviewed lab work Reviewed cultures Reviewed imaging studies including head CT and chest x-ray Continue the increased dose of levothyroxine of 150 mcg daily Continue IV antibiotics Continue mirtazapine and quetiapine Continue as needed psychotic/psychiatric medication to treat agitation Continue DVT prophylax Continue monitoring Late Entry. This medical document was created using an electronic medical record system with computerized dictation system. Although this document has been carefully reviewed, there might still be some phonetic and typographical errors. These areas are purely typographical due to imperfections of the software programs, and do not reflect any compromise in the patient's medical care. Plan discussed with: Other (Nurse) Date of Service: November 14, 2024 Billing Provider: YANCY SHAFFER MD Common Visit Codes: [id number] INP/OBS CARE(HIGH) YANCY SHAFFER MD November 14, 2024 07:58
--- NOTE | 2024-11-14 15:03 | MEDREC ---
FORMER[facility] ASP Intervention Section I FORMERLY [facility] ASP Intervention: Review courses of therapy (MRSA SCREEN POSITIVE CONSIDER ADDING MUPIROCIN 2% OINTMENT 1 APPLICATION IN EACH NOSTRIL BID FOR 5 DAYS ) CHRISSY DAI PHARMACIST November 14, 2024 15:03
[2024-11-14] MEDS: ENOXAPARIN SOD 40 MG/0.4 ML SYRINGE SC ONE (18:14)
[2024-11-15] VITALS (9 sets, daily range): BP systolic 100–134; BP diastolic 57–81; PULSE 66–84; RESP 18–19; TEMP 96.5–98.4; O2SAT 94–100
[2024-11-15 06:15] LABS: Basophils # (auto) 0 10 ^3/uL (0-0.2); Basophils % (auto) 0.7 % (0.0-2.0); Eosinophils # (auto) 0.2 10 ^3/uL (0-0.8); Hematocrit 38.3 % (36.0-46.0); Hemoglobin 12.9 g/dL (12.2-16.2); Lymphocytes % (auto) 35.4 % (10.0-50.0); Mean Corpuscular Hemoglobin 29.9 pg (28.0-32.0); Mean Corpuscular Hgb Conc. 33.6 g/dL (32.0-36.0); Mean Corpuscular Volume 88.9 fL (80.0-100.0); Monocytes # (auto) 0.5 10 ^3/uL (0-1.3); Monocytes % (auto) 8.8 % (0.0-12.0); Neutrophils # (auto) 2.9 10 ^3/uL (1.6-8.6); Neutrophils % (auto) 51.1 % (37.0-80.0); Nucleated Red Blood Cells % 0.2 %; Platelet Count (auto) 186 10^3/uL (140-450); Red Blood Cells 4.31 10^6/uL (4.0-5.20); Red Cell Distribution Width 13.7 % (11.8-14.3); White Blood Cell 5.6 10^3/uL (4.4-10.8)
[2024-11-15 06:28] LABS: Potassium 4.1 mmol/L (3.5-5.1); Sodium 142 mmol/L (136-145)
[2024-11-15 06:29] LABS: Anion Gap 8 (5-15); Calcium 9.7 mg/dL (8.7-10.4); Carbon Dioxide 25 mmol/L (20-31)
[2024-11-15 06:34] LABS: Chloride 109 mmol/L (98-107)
[2024-11-15 06:35] LABS: BUN/Creatinine Ratio 18.6 (10.0-20.0); Blood Urea Nitrogen 11 mg/dL (9-23); Glucose 99 mg/dL (74-106)
[2024-11-15] MEDS: ENOXAPARIN SOD 40 MG/0.4 ML SYRINGE SC SCH (09:43)
[2024-11-15] MEDS ORDERED: LEVO50TA7 PO (13:20)
[2024-11-15] MEDS ORDERED: CEPH250C PO (13:20)
--- NOTE | 2024-11-15 13:28 | DVHDSRES ---
Discharge Summary Date of Admission Resident Creating Document: DAKOTA JONES RESIDENT November 12, 2024 at 01:42 Date of Discharge: November 15, 2024 Admitting Diagnosis Acute toxic or metabolic encephalopathy Labs/Diagnostic Data: Laboratory Results Test 11/15/24 05:10 11/12/24 14:54 11/12/24 14:18 11/11/24 23:59 White Blood Count 5.6 10^3/uL (4.4-10.8) Red Blood Count 4.31 10^6/uL (4.0-5.20) Hemoglobin 12.9 g/dL (12.2-16.2) Hematocrit 38.3 % (36.0-46.0) Mean Corpuscular Volume 88.9 fL (80.0-100.0) Mean Corpuscular Hemoglobin 29.9 pg (28.0-32.0) Mean Corpuscular Hemoglobin Concent 33.6 g/dL (32.0-36.0) Red Cell Distribution Width 13.7 % (11.8-14.3) Platelet Count 186 10^3/uL (140-450) Mean Platelet Volume 9.3 fL (6.9-10.8) Neutrophils (%) (Auto) 51.1 % (37.0-80.0) Lymphocytes (%) (Auto) 35.4 % (10.0-50.0) Monocytes (%) (Auto) 8.8 % (0.0-12.0) Eosinophils (%) (Auto) 4.0 % (0.0-7.0) Basophils (%) (Auto) 0.7 % (0.0-2.0) Neutrophils # (Auto) 2.9 10 ^3/uL (1.6-8.6) Lymphocytes # (Auto) 2.0 10 ^3/uL (0.4-5.4) Monocytes # (Auto) 0.5 10 ^3/uL (0-1.3) Eosinophils # (Auto) 0.2 10 ^3/uL (0-0.8) Basophils # (Auto) 0 10 ^3/uL (0-0.2) Nucleated Red Blood Cells 0.2 % Sodium Level 142 mmol/L (136-145) Potassium Level 4.1 mmol/L (3.5-5.1) Chloride Level 109 mmol/L (98-107) Carbon Dioxide Level 25 mmol/L (20-31) Anion Gap 8 (5-15) Blood Urea Nitrogen 11 mg/dL (9-23) Creatinine 0.59 mg/dL (0.550-1.02) Glomerular Filtration Rate Calc 102 mL/min (>90) BUN/Creatinine Ratio 18.6 (10.0-20.0) Serum Glucose 99 mg/dL (74-106) Calcium Level 9.7 mg/dL (8.7-10.4) Influenza Type A Antigen Negative (Negative) Influenza Type B Antigen Negative (Negative) SARS-CoV-2 Antigen (Rapid) Negative (NEGATIVE) Ammonia 32 umol/L (11-32) Vitamin B12 Level 391 pg/mL (211-911) Vitamin D 25-Hydroxy 77.3 ng/mL (30.0-100) Thyroid Stimulating Hormone (TSH) 14.93 uIU/mL (0.55-4.78) Urine Color Light-brown (Yellow) Urine Clarity Ex.turbid (Clear) Urine pH 6.0 (5.0-9.0) Urine Specific [place] 1.027 (1.001-1.035) Urine Protein Trace (Negative) Urine Ketones Trace (Negative) Urine Blood Negative /uL (Negative) Urine Nitrite Negative (Negative) Urine Bilirubin Negative (Negative) Urine Urobilinogen 4 mg/dL (Negative) Urine Leukocyte Esterase 2+ /uL (Negative) Urine RBC 2 /hpf (0 - 4) Urine Microscopic WBC 8 /HPF (0-5) Urine Squamous Epithelial Cells Few /hpf (<5) Urine Bacteria Many /hpf (None Seen) Urine Glucose Normal mg/dL (Normal) Test 11/11/24 23:35 11/11/24 22:22 Troponin I High Sensitivity 3 ng/L (</=34) Lactic Acid Level 1.5 mmol/L (0.4-2.0) Total Bilirubin 0.2 mg/dL (0.2-1.0) Aspartate Amino Transferase (AST) 9 U/L (13-40) Alanine Aminotransferase (ALT) 15 U/L (7-40) Alkaline Phosphatase 63 U/L (46-116) Total Protein 7.4 g/dL (5.7-8.2) Albumin 4.7 g/dL (3.2-4.8) Other Laboratory Tests 11/15/24 05:10 Brief Hx & Hospital Course: This is a 59-year-old female with past medical history of depression, hypothyroidism, hyperlipidemia, schizophrenia presented to the ED the EMS for an evaluation of altered mental status; caregiver claimed the patient's cognitive ability has been deteriorating, acting confused, disoriented, noted foul-smelling urine, urinary frequency, incontinence getting worse that prompted this visit. Patient required hospital admission for further evaluation and management of acute encephalopathy. 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 CXR showed mild bibasilar atelectasis or consolidation. Patient found to have pneumonia, started on IV Rocephin and azithromycin along with breathing treatments with albuterol and ipratropium. Patient does have urinary symptoms, urinary analysis showed acute complicated cystitis, ordered urine culture which showed Klebsiella pneumoniae. Despite of levothyroxine 137 mcg patient found to have low thyroid, switched to levothyroxine 150 mcg. Resumed all her home medications. eventually patient condition got better, in condition to be go assisted living facility with the Keflex 500 mg b.i.d. for 7 days and follow up with the PCP and in [place] clinic. Pt is lying on bed General Appearance: Alert, Oriented X1, Cooperative, Not in acute distress HEENT: Atraumatic, Mucous membranes moist/pink Respiratory: Clear to auscultation, Normal air movement, No added sounds Cardiovascular: Regular rate, Normal S1, Normal S2, No murmurs Abdominal: Active bowel sounds, Soft, no distention, no tenderness Extremities: No edema, Normal pulses, No tenderness/swelling Skin: No Significant rash, except past surgical scars Neuro: Normal speech, sensorimotor deficits none Psych/Mental Status: Mental status NL, Mood NL Nurse was there as sharperone during examination Operations or Procedures CHEST RADIOGRAPH Mild bibasilar atelactasis/consolidation. CT of the head without intravenous contrast. 1. 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 There are no prior studies for comparison. 2. No acute intracranial hemorrhage. 3. No mass effect or midline shift. Condition at Discharge: Stable Final Diagnosis/Problems List # Acute metabolic encephalopathy likely due to hypothyroidism # Possible Gram-positive versus Gram-negative pneumonia # Possible acute delirium # Acute Klebsiella pneumoniae complicated UTI # Chronic hypothyroidism with elevated TSH # History of the depression # Questionable history of schizophrenia # Nasal MRSA Discharge Disposition: Assisted Living Facility Discharge Instruct/Medications Diet: Cardiac 2g Na,low cholest Activity: No Restrictions, As Tolerated Follow Up/Referral: PCP Medications: Keflex 500 mg b.i.d. for 5 days Resume home medications Discharge Statement: "Patient was advised to return to the ER or call 911 if any headaches, dizziness, shortness of breath, chest pain, abdominal pain, bleeding, fevers, or worsening of medical condition. Patient was counseled about treatment plan, medications, possible side effects, patientverbalized understanding. All questions were answered to the best of my ability. This discharge took greater then 30 minutes in planning, reviewing documentation, counseling the patient, and discussing with other team members." ASSESSMENT ASSESSMENT Assessment # Acute metabolic encephalopathy likely due to hypothyroidism vs pneumonia vs cystitis # Possible Gram-positive versus Gram-negative pneumonia # Possible acute delirium # Acute complicated cystitis DAKOTA JONES RESIDENT November 15, 2024 13:28
[2024-11-16 01:00] VITALS: BP 100/87; PULSE 65; RESP 17; TEMP 97.8; O2SAT 92
[2024-11-16 05:00] VITALS: BP 98/69; PULSE 78; RESP 17; TEMP 98.6; O2SAT 95
[2024-11-16 08:00] VITALS: PULSE 71; O2SAT 97
[2024-11-16 09:00] VITALS: BP 105/54; PULSE 71; RESP 18; TEMP 97.8; O2SAT 97
--- NOTE | 2024-11-16 09:36 | DVHPNRES ---
Progress Note Date Seen: November 16, 2024 Resident Creating Document: DAKOTA JONES RESIDENT Medical Necessity Reason Pt with a Central, PICC or Fol: No Subjective Review of Systems Patient seen and examined at the bedside. Patient is on but still confused as it is her baseline. Discharge pending due to delay in placement. Likely DC in next 12-48 hours. Patient reports: No new complaints, Feels better Changes from previous H/P or p: No Changes Objective vital signs Vital Sign Date Time Temp Pulse Resp B/P (MAP) Pulse Ox O2 Delivery O2 Flow Rate FiO2 11/16/24 05:00 98.6 78 17 98/69 (79) 95 98.6 11/15/24 20:00 Room Air* 0 21 Total Intake and Output 11/15/24 11/15/24 11/16/24 15:00 23:00 07:00 Intake Total 300 ml 1100 ml 200 ml Balance 300 ml 1100 ml 200 ml medications Current Medications Medications Dose Ordered Sig/Candido Route Start Time Stop Time Status Last Admin Dose Admin Atorvastatin Calcium 40 mg HS PO 11/12/24 22:00 Cancel Mirtazapine 30 mg HS PO 11/12/24 22:00 Cancel Sodium Chloride 10 ml Q8HR IV 11/12/24 06:00 11/16/24 06:52 10 ML Ondansetron HCl 4 mg Q4HP PRN IV 11/12/24 01:45 Docusate Sodium 100 mg BIDPRN PRN PO 11/12/24 01:45 Acetaminophen 650 mg Q6HP PRN PO 11/12/24 01:45 11/13/24 18:26 650 MG Nitroglycerin 0.4 mg Q5MINP PRN SL 11/12/24 01:45 Ceftriaxone Sodium 50 ml @ 100 mls/hr DAILY@09 IV 11/13/24 09:00 11/16/24 08:51 100 MLS/HR Cholecalciferol 1,000 unit DAILY PO 11/13/24 10:00 11/16/24 08:51 1,000 UNIT Mirtazapine 30 mg QPM PO 11/12/24 18:00 11/15/24 18:09 30 MG Patient Own Medication 137 mcg DAILY PO 11/13/24 10:00 UNV Patient Own Medication 300 mg HS PO 11/12/24 22:00 UNV Atorvastatin Calcium 40 mg HS PO 11/12/24 22:00 11/15/24 21:51 40 MG Quetiapine Fumarate 300 mg HS PO 11/12/24 22:00 11/15/24 21:51 300 MG Azithromycin 250 ml @ 125 mls/hr DAILY IV 11/13/24 10:00 11/16/24 08:52 125 MLS/HR Albuterol 2.5 mg Q6HPRN PRN NEB 11/12/24 11:30 Ipratropium [place] 0.5 mg Q6HR PRN NEB 11/12/24 13:00 Levothyroxine Sodium 150 mcg QAM@0600 PO 11/14/24 06:00 11/16/24 06:54 150 MCG Mupirocin 1 applic BID EACHNOSTRI 11/13/24 22:00 11/18/24 21:59 11/15/24 21:50 1 APPLIC Lorazepam 0.5 mg Q12HP PRN IV 11/13/24 15:00 Enoxaparin Sodium 40 mg DAILY SC 11/15/24 10:00 11/16/24 08:52 40 MG Examination General Appearance: Alert, Oriented X1, Cooperative, Not in acute distress HEENT: Atraumatic, Mucous membranes moist/pink Respiratory: Clear to auscultation, Normal air movement, No added sounds Cardiovascular: Regular rate, Normal S1, Normal S2, No murmurs Abdominal: Active bowel sounds, Soft, no distention, no tenderness Extremities: No edema, Normal pulses, No tenderness/swelling Skin: No Significant rash, except past surgical scars Neuro: Normal speech, sensorimotor deficits none Psych/Mental Status: Mental status NL, Mood NL Nurse was there as sharperone during examination laboratory and microbiology Laboratory Tests 11/15/24 05:10 Test 11/15/24 05:10 Range/Units Serum Glucose 99 74-106 mg/dL Microbiology Date/Time Source Procedure Growth Status 11/12/24 22:40 Nose MRSA Screen - Final Methicillin Resistant S.aureus Complete 11/11/24 23:59 Voided Urine Urine Culture - Final Klebsiella pneumoniae Complete 11/11/24 22:22 Blood Blood Culture - Preliminary NO GROWTH AFTER 72 HOURS OF INCUBATION. 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 - CXR showed mild bibasilar atelectasis/ consolidation - med neb with albuterol and ipratropium q.6 hours - IV ceftriaxone 1 g daily and IV azithromycin 500 mg daily - TSH >14 and B12 , ammonia are normal and pending UDS - Haloperidol 2.5 mg IM once # Acute complicated cystitis - U/A was consistent with UTI - Ordered urine bacterial culture - IV ceftriaxone 1 g daily # Chronic hypothyroidism with elevated TSH - Increased Levothyroxine to 150 mcg daily at q.a.m. # History of the depression - Mirtazapine 30 mg p.o. at q.p.m. # Questionable history of schizophrenia - Quetiapine 300 mg at HS # DVT prophylaxis - Lovenox 40 mg sc daily Case discussed with Dr. Magdaleno, patient and nurse. likely DC in next 12-48 hours. Plan discussed with: Patient, Other (RN) My Orders My Orders Orders - DAKOTA JONES RESIDENT Procedure Category Date Status Time Discharge DISCHARGE 11/15/24 Transmitted 13:15 Schedule For Dc MANDY 11/15/24 In Process Clinic F/U 13:15 * [employer] CONS 11/15/24 Transmitted Consult Dietary Evaluation Review Comments: On cardiac diet d/t HLD. monitor lipid profile prevent lipitor over-use, Expected Outcomes/Goals: gradual wt loss. DAKOTA JONES RESIDENT November 16, 2024 09:36
[2024-11-16 13:00] VITALS: BP 108/68; PULSE 71; RESP 18; TEMP 97.7; O2SAT 95
--- NOTE | 2024-11-16 18:10 | MEDREC ---
[facility] Intervention Section I [facility] Intervention: IV to PO conversion (PLEASE CONSIDER IV TO PO CONVERSION (PT IS TOLERATING FOOD AND ORAL MEDICATIONS ). ) CHRISSY DAI PHARMACIST November 16, 2024 18:10
[2024-11-16 21:00] VITALS: BP 115/93; PULSE 63; RESP 19; TEMP 98.1; O2SAT 97
[2024-11-17] VITALS (7 sets, daily range): BP systolic 92–128; BP diastolic 58–72; PULSE 64–74; RESP 16–20; TEMP 97.2–97.7; O2SAT 92–100
--- NOTE | 2024-11-17 09:30 | DVHPNRES ---
Progress Note Date Seen: November 17, 2024 Resident Creating Document: DAKOTA JONES RESIDENT Medical Necessity Reason Pt with a Central, PICC or Fol: No Subjective Review of Systems Patient seen and examined at the bedside. Patient is on but still confused as it is her baseline. Discharge pending due to delay in placement. Likely DC in next 12-48 hours. Patient reports: No new complaints Changes from previous H/P or p: No Changes Objective vital signs Vital Sign Date Time Temp Pulse Resp B/P (MAP) Pulse Ox O2 Delivery O2 Flow Rate FiO2 11/17/24 05:00 97.4 66 18 122/71 (88) 94 97.4 11/16/24 20:13 Room Air* 0 21 Total Intake and Output 11/16/24 11/16/24 11/17/24 15:00 23:00 07:00 Intake Total 300 ml 900 ml 600 ml Balance 300 ml 900 ml 600 ml medications Current Medications Medications Dose Ordered Sig/Candido Route Start Time Stop Time Status Last Admin Dose Admin Atorvastatin Calcium 40 mg HS PO 11/12/24 22:00 Cancel Mirtazapine 30 mg HS PO 11/12/24 22:00 Cancel Sodium Chloride 10 ml Q8HR IV 11/12/24 06:00 11/17/24 06:44 10 ML Ondansetron HCl 4 mg Q4HP PRN IV 11/12/24 01:45 Docusate Sodium 100 mg BIDPRN PRN PO 11/12/24 01:45 Acetaminophen 650 mg Q6HP PRN PO 11/12/24 01:45 11/13/24 18:26 650 MG Nitroglycerin 0.4 mg Q5MINP PRN SL 11/12/24 01:45 Cholecalciferol 1,000 unit DAILY PO 11/13/24 10:00 11/17/24 08:49 1,000 UNIT Mirtazapine 30 mg QPM PO 11/12/24 18:00 11/16/24 17:26 30 MG Patient Own Medication 137 mcg DAILY PO 11/13/24 10:00 UNV Patient Own Medication 300 mg HS PO 11/12/24 22:00 UNV Atorvastatin Calcium 40 mg HS PO 11/12/24 22:00 11/16/24 21:55 40 MG Quetiapine Fumarate 300 mg HS PO 11/12/24 22:00 11/16/24 21:55 300 MG Levothyroxine Sodium 150 mcg QAM@0600 PO 11/14/24 06:00 11/17/24 06:44 150 MCG Mupirocin 1 applic BID EACHNOSTRI 11/13/24 22:00 11/18/24 21:59 11/17/24 09:11 1 APPLIC Lorazepam 0.5 mg Q12HP PRN IV 11/13/24 15:00 Enoxaparin Sodium 40 mg DAILY SC 11/15/24 10:00 11/17/24 08:49 40 MG Cephalexin 500 mg BID PO 11/17/24 10:00 Examination General Appearance: Alert, Oriented X1, Cooperative, Not in acute distress HEENT: Atraumatic, Mucous membranes moist/pink Respiratory: Clear to auscultation, Normal air movement, No added sounds Cardiovascular: Regular rate, Normal S1, Normal S2, No murmurs Abdominal: Active bowel sounds, Soft, no distention, no tenderness Extremities: No edema, Normal pulses, No tenderness/swelling Skin: No Significant rash, except past surgical scars Neuro: Normal speech, sensorimotor deficits none Psych/Mental Status: Mental status NL, Mood NL Nurse was there as sharperone during examination laboratory and microbiology Laboratory Tests 11/15/24 05:10 Test 11/15/24 05:10 Range/Units Serum Glucose 99 74-106 mg/dL Microbiology Date/Time Source Procedure Growth Status 11/12/24 22:40 Nose MRSA Screen - Final Methicillin Resistant S.aureus Complete 11/11/24 23:59 Voided Urine Urine Culture - Final Klebsiella pneumoniae Complete 11/11/24 22:22 Blood Blood Culture - Final NO GROWTH AFTER 5 DAYS OF INCUBATION. 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 - CXR showed mild bibasilar atelectasis/ consolidation - med neb with albuterol and ipratropium q.6 hours - DC IV ceftriaxone and IV azithromycin - start Keflex 500 mg p.o. b.i.d. # Acute complicated cystitis - U/A was consistent with UTI - Ordered urine bacterial culture - keflex po # Chronic hypothyroidism with elevated TSH - Increased Levothyroxine to 150 mcg daily at q.a.m. # History of the depression - Mirtazapine 30 mg p.o. at q.p.m. # Questionable history of schizophrenia - Quetiapine 300 mg at HS # DVT prophylaxis - Lovenox 40 mg sc daily Case discussed with Dr. Magdaleno, patient and nurse. likely DC in next 12-48 hours. Plan discussed with: Other (RN) My Orders My Orders Orders - DAKOTA JONES RESIDENT Procedure Category Date Status Time Cephalexin Capsule PHA 11/17/24 In Process (Keflex Capsule) 10:00 Dietary Evaluation Review Comments: On cardiac diet d/t HLD. monitor lipid profile prevent lipitor over-use, Expected Outcomes/Goals: gradual wt loss. DAKOTA JONES RESIDENT November 17, 2024 09:30
[2024-11-17] MEDS: CEPHALEXIN 250 MG CAP PO SCH (10:00)
[2024-11-18 05:00] VITALS: BP 105/60; PULSE 67; RESP 18; TEMP 97.9; O2SAT 96
[2024-11-18 08:00] VITALS: PULSE 77; RESP 16; O2SAT 98
[2024-11-18 08:50] VITALS: BP 98/57; PULSE 77; RESP 16; TEMP 98.3; O2SAT 98
--- NOTE | 2024-11-18 08:55 | DVHPNRES ---
Progress Note Date Seen: November 18, 2024 Resident Creating Document: DAKOTA JONES RESIDENT Medical Necessity Reason Pt with a Central, PICC or Fol: No Subjective Review of Systems Patient seen and examined at the bedside. Patient is on but still confused as it is her baseline. Discharge pending due to delay in placement. Likely DC in next 12-48 hours. Patient reports: No new complaints Objective vital signs Vital Sign Date Time Temp Pulse Resp B/P (MAP) Pulse Ox O2 Delivery O2 Flow Rate FiO2 11/18/24 05:00 97.9 67 18 105/60 (75) 96 97.9 11/17/24 20:00 Room Air* 0 21 Total Intake and Output 11/17/24 11/17/24 11/18/24 15:00 23:00 07:00 Intake Total 900 ml 600 ml Balance 900 ml 600 ml medications Current Medications Medications Dose Ordered Sig/Candido Route Start Time Stop Time Status Last Admin Dose Admin Atorvastatin Calcium 40 mg HS PO 11/12/24 22:00 Cancel Mirtazapine 30 mg HS PO 11/12/24 22:00 Cancel Sodium Chloride 10 ml Q8HR IV 11/12/24 06:00 11/18/24 05:40 10 ML Ondansetron HCl 4 mg Q4HP PRN IV 11/12/24 01:45 Docusate Sodium 100 mg BIDPRN PRN PO 11/12/24 01:45 Acetaminophen 650 mg Q6HP PRN PO 11/12/24 01:45 11/18/24 00:08 650 MG Nitroglycerin 0.4 mg Q5MINP PRN SL 11/12/24 01:45 Cholecalciferol 1,000 unit DAILY PO 11/13/24 10:00 11/17/24 08:49 1,000 UNIT Mirtazapine 30 mg QPM PO 11/12/24 18:00 11/17/24 18:00 30 MG Patient Own Medication 137 mcg DAILY PO 11/13/24 10:00 UNV Patient Own Medication 300 mg HS PO 11/12/24 22:00 UNV Atorvastatin Calcium 40 mg HS PO 11/12/24 22:00 11/17/24 21:59 40 MG Quetiapine Fumarate 300 mg HS PO 11/12/24 22:00 11/17/24 21:58 300 MG Levothyroxine Sodium 150 mcg QAM@0600 PO 11/14/24 06:00 11/18/24 05:44 150 MCG Mupirocin 1 applic BID EACHNOSTRI 11/13/24 22:00 11/18/24 21:59 11/17/24 22:01 1 APPLIC Lorazepam 0.5 mg Q12HP PRN IV 11/13/24 15:00 Enoxaparin Sodium 40 mg DAILY SC 11/15/24 10:00 11/17/24 08:49 40 MG Cephalexin 500 mg BID PO 11/17/24 10:00 11/17/24 21:58 500 MG Examination General Appearance: Alert, Oriented X1, Cooperative, Not in acute distress HEENT: Atraumatic, Mucous membranes moist/pink Respiratory: Clear to auscultation, Normal air movement, No added sounds Cardiovascular: Regular rate, Normal S1, Normal S2, No murmurs Abdominal: Active bowel sounds, Soft, no distention, no tenderness Extremities: No edema, Normal pulses, No tenderness/swelling Skin: No Significant rash, except past surgical scars Neuro: Normal speech, sensorimotor deficits none Psych/Mental Status: Mental status NL, Mood NL Nurse was there as sharperone during examination laboratory and microbiology Laboratory Tests 11/15/24 05:10 Test 11/15/24 05:10 Range/Units Serum Glucose 99 74-106 mg/dL Microbiology Date/Time Source Procedure Growth Status 11/12/24 22:40 Nose MRSA Screen - Final Methicillin Resistant S.aureus Complete 11/11/24 23:59 Voided Urine Urine Culture - Final Klebsiella pneumoniae Complete 11/11/24 22:22 Blood Blood Culture - Final NO GROWTH AFTER 5 DAYS OF INCUBATION. 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 - CXR showed mild bibasilar atelectasis/ consolidation - Med neb with albuterol and ipratropium q.6 hours - Keflex 500 mg p.o. b.i.d. # Acute complicated cystitis - U/A was consistent with UTI - Ordered urine bacterial culture-Klebsiella pneumonia - keflex po # Chronic hypothyroidism with elevated TSH - Increased Levothyroxine to 150 mcg daily at q.a.m. # History of the depression - Mirtazapine 30 mg p.o. at q.p.m. # Questionable history of schizophrenia - Quetiapine 300 mg at HS # DVT prophylaxis - Lovenox 40 mg sc daily Case discussed with Dr. Magdaleno, patient and nurse. likely DC in next 12-48 hours. Plan discussed with: Other (rn) My Orders My Orders Orders - DAKOTA JONES RESIDENT Procedure Category Date Status Time Cephalexin Capsule PHA 11/17/24 In Process (Keflex Capsule) 10:00 Dietary Evaluation Review Comments: On cardiac diet d/t HLD. monitor lipid profile prevent lipitor over-use, Expected Outcomes/Goals: gradual wt loss. DAKOTA JONES RESIDENT November 18, 2024 08:55
[2024-11-18 13:00] VITALS: BP 111/65; PULSE 74; RESP 18; TEMP 98.8; O2SAT 97
[2024-11-18 16:45] VITALS: BP_SYST 107; BP_SYST 110; BP_DIAS 61; BP_DIAS 66; PULSE 117; PULSE 77; RESP 16; RESP 18; TEMP 97.9; TEMP 98.2; O2SAT 95; O2SAT 99
== END 2024-11-18 16:50 | disposition hospice, home (50) | DRG 52 ==
LOC: ER 20:28 → OVERFLOW 11-12 01:42 → TELE-CENTR 11-12 15:26 → CENTRAL 11-13 20:58
PROVIDERS: ADMIT Student in an Organized Health Care Education/Training Program; ATTEND Student in an Organized Health Care Education/Training Program
DX: G92.8 Other toxic encephalopathy (principal); J15.69 Pneumonia due to other Gram-negative bacteria; E03.9 Hypothyroidism, unspecified; J15.9 Unspecified bacterial pneumonia; Z51.5 Encounter for palliative care; F20.9 Schizophrenia, unspecified; E78.5 Hyperlipidemia, unspecified; E66.9 Obesity, unspecified; F32.A Depression, unspecified; N30.00 Acute cystitis without hematuria; F17.210 Nicotine dependence, cigarettes, uncomplicated; Z90.710 Acquired absence of both cervix and uterus; Z79.899 Other long term (current) drug therapy; Z68.32 Body mass index [BMI] 32.0-32.9, adult
CPT/HCPCS: 36415; 36600; 70450; 71045; 80048; 80053; 81001; 82140; 82306; 82607; 82805; 83605; 84443; 84484; 85025; 87040; 87081; 87086; 87088; 87186; 87426; 87804; 96365; 96367; 96372; G0378